=== PATIENT | male | born 1995 | race Two or more races ===

== ENCOUNTER 2018-01-07 09:22 | Emergency (ER) | payer MEDICAID ==
[~2018-01-07] VITALS: Ht 162.6 cm; Wt 71.7 kg
--- NOTE | 2018-01-07 09:25 | NUR ---
AAOx3, came to er c/o diffuse abdominal pain and diarrhea x 3 days, denies nausea and vomiting. Afebrile. RR is even and unlabored with NAD noted. Skin is warm and non diaphoretic. Awaiting md for eval.
--- NOTE | 2018-01-07 09:34 | NUR ---
Dr Decker at [facility] for eval.
[2018-01-07] MEDS ORDERED: MAG HYDROX/AL HYDROX/SIMETH 30 ML UDC ONE (09:45)
[2018-01-07] MEDS ORDERED: LIDOCAINE VISCOUS 2% UD 15 ML UDC ONE (09:45)
[2018-01-07] MEDS ORDERED: KETOROLAC TROMETHAMINE 15 MG/ML VIAL ONE (09:45)
[2018-01-07] MEDS ORDERED: LOPERAMIDE HCL (2 MG CAP) 2 MG CAPSULE PO ONE ×2 (09:45→10:00)
[2018-01-07 09:58] LABS: BASOPHILS % (AUTO) 0.4 % (0.0-2.0); EOSINOPHILS % (AUTO) 5.3 % (0.0-6.0); HEMATOCRIT 49 % (39-51); HEMOGLOBIN 16.3 g/dL (13.5-17.5); LYMPHOCYTES # (AUTO) 1.6 /CMM (0.8-4.8); LYMPHOCYTES % (AUTO) 23.1 % (20.0-44.0); MEAN CORPUSCULAR HGB CONC 33 g/dl (31.0-36.0); MEAN CORPUSCULAR VOLUME 85 fL (80-96); MONOCYTES # (AUTO) 0.7 /CMM (0.1-1.30); MONOCYTES % (AUTO) 9.9 % (2.0-12.0); NEUTROPHILS % (AUTO) 61.3 % (43.0-81.0); PLATELET COUNT (AUTO) 252 /CMM (150-450); RDW COEFFICIENT OF VARIATION 12.1 (11.5-15.0); WHITE BLOOD COUNT (AUTO) 6.7 K/uL (4.3-11.0)
[2018-01-07] MEDS ORDERED: MAG HYDROX/AL HYDROX/SIMETH 30 ML UDC PO ONE (10:00)
[2018-01-07] MEDS ORDERED: LIDOCAINE VISCOUS 2% UD 15 ML UDC MM ONE (10:00)
[2018-01-07] MEDS ORDERED: IV NS 0.9% 1,000 ML BAG IV ONE (10:00)
[2018-01-07] MEDS ORDERED: KETOROLAC TROMETHAMINE INJ 30 MG/ML VIAL IV ONE (10:00)
[2018-01-07 10:03] LABS: CALCIUM, SERUM 9.1 mg/dL (8.5-10.1); CREATININE 0.7 mg/dL (0.6-1.3); POTASSIUM 3.3 mmol/L (3.5-5.1)
[2018-01-07 10:08] LABS: ALBUMIN 4.2 g/dL (3.4-5.0); BILIRUBIN,DIRECT 0.1 mg/dL (0.0-0.2); BILIRUBIN,TOTAL 0.7 mg/dL (0.2-1.0); TOTAL PROTEIN, SERUM 7.9 g/dL (6.4-8.2)
[2018-01-07] MEDS ORDERED: POTASSIUM CHLORIDE 20 MEQ TAB.PRT.SR PO ONE ×3 (10:23→10:30)
--- NOTE | 2018-01-07 10:37 | NUR ---
IV removed. Catheter intact and site benign. Pressure and 4x4 applied to site. No bleeding noted.Patient discharged to home in stable condition. Written and verbal after care instructions given. Patient verbalizes understanding of instruction.
--- NOTE | 2018-01-07 10:51 | NUR ---
IV removed. Catheter intact and site benign. Pressure and 4x4 applied to site. No bleeding noted. Patient discharged to home in stable condition. Written and verbal after care instructions given. Patient verbalizes understanding of instruction.
[2018-01-07 10:52] VITALS: BP 120/64
== END 2018-01-07 10:54 | disposition home or self-care (01) ==
LOC: ER 09:24
DX: R19.7 Diarrhea, unspecified (principal); E87.6 Hypokalemia
CPT/HCPCS: 36415; 80048; 80076; 83690; 85025; 96361; 96374; 99284; A4606; J1885; J7030; Z7610